=== PATIENT | female | born 1960 | race Caucasian/White ===

== ENCOUNTER → 2018-02-08 | Outpatient (CLI) | payer MEDICARE, OTHER ==
[~2018-02-08] MED LIST: ACET325T11 PO; LORTA5 PO; METO25 PO
--- NOTE | 2018-02-09 09:45 | RSPPFT ---
DATE OF PROCEDURE: 02/08/18 COMMENTS: Spirometry shows FVC of 3.1 at 106% of predicted, FEV1 of 2.4 at 102%, FEV1/FVC ratio is normal. Flow is normal at FEF 25, FEF 50, FEF 75 and FEF 25-75. There is no response after bronchodilator treatment. Lung volumes show residual volume is increased. TLC is normal. Diffusion capacity is normal. Flow volume loop indicates a normal pattern. IMPRESSION: 1. Normal spirometry. 2. No response after bronchodilator treatment. 3. Lung volumes show mild hyperinflation. 4. Normal diffusion capacity.
== END ==
LOC: PHRSP 08:27
PROVIDERS: ATTEND Specialist
DX: J45.909 Unspecified asthma, uncomplicated (principal)
CPT/HCPCS: 94060; 94618; 94726; 94729